=== PATIENT | female | born 1975 | race Caucasian/White ===

== ENCOUNTER 2018-08-26 11:31 | Emergency (ER) | payer OTHER ==
[2018-08-26] MEDS ORDERED: CIPROFLOXACIN 400mg IV 400 MG/200 ML BAG IV ONE (12:34)
[2018-08-26] MEDS ORDERED: METRONIDAZOLE 500mg IVPB 500 MG/100 ML BAG IV ONE (12:34)
[2018-08-26] MEDS ORDERED: NA CHLORIDE 0.9% 1,000 ML ONE (12:34)
[2018-08-26 12:46] LABS: Absolute Lymphocytes (CBC) 1.3 K/uL (0.7-4.9); Basophils % 0.9 % (0-1.3); Eosinophils % 0.9 % (0-4.4); Hematocrit 38.4 % (36.0-45.0); Lymphocytes % 32.5 % (15.3-44.8); MPV 8.5 fL (7.6-11.3); Monocytes % 5.9 % (3.3-12.3); RBC Red Blood Cell Count 4.36 M/uL (3.86-4.86)
[2018-08-26 13:01] LABS: ALT/SGPT 20 U/L (12-78); AST/SGOT 13 U/L (15-37); Alkaline Phosphatase 53 U/L (45-117); BUN Blood Urea Nitrogen 11 mg/dL (7-18); Bicarbonate 29 mmol/L (21-32); Bilirubin Direct < 0.1 mg/dL (0-0.2); Bilirubin Total 0.4 mg/dL (0.2-1.0); Glucose Level 86 mg/dL (74-106); Lipase 72 U/L (73-393); Potassium 3.7 mmol/L (3.5-5.1); Protein, Total 7.6 g/dL (6.4-8.2); Sodium Level 142 mmol/L (136-145)
[2018-08-26] MEDS ORDERED: ONDANSETRON 4 MG/2 ML VIAL ONE (13:08)
[2018-08-26] MEDS ORDERED: MORPHINE 4 MG/ML SYR ONE (13:08)
[2018-08-26 13:14] LABS: Urine Blood NEGATIVE (NEG); Urine Glucose NEGATIVE (NEG); Urine Protein NEGATIVE (NEG); Urine pH 5.5 (5.0-7.0)
[2018-08-26] MEDS ORDERED: FENTANYL CITR 100 MCG/2 ML ONE (13:42)
--- NOTE | 2018-08-26 13:57 | RAD REPORT ---
EXAM DESCRIPTION: CT - Abdomen Pelvis W Contrast - 08/26/2018 1:45 pm CLINICAL HISTORY: Abdominal pain. Hematochezia COMPARISON: None. TECHNIQUE: Computed axial tomography of the abdomen and pelvis was obtained. 100 cc Isovue-300 is ad ministered intravenously. Oral contrast was given. All CT scans are performed using dose optimization technique as appropriate and may include automated exposure control or mA/KV adjustment according to patient size. FINDINGS: The left lobe of the liver is prominent. Tiny hepatic cysts is present. Cholecystectomy Spleen, pancreas, adrenals and kidneys appear unremarkable. The appendix is normal caliber. There is no evidence of diverticulitis The wall of the distal transverse colon and descending colon is mildly to moderately thickened IMPRESSION: Mild to moderate colitis
--- NOTE | 2018-08-26 14:05 | ER ---
Nurse's Notes [facility] Name: Yara Smith Bone Age: 42 yrs Sex: Female : 1975 Arrival Date: 08/26/2018 Time: 11:36 Bed 20 Private MD: Latha Finley K Diagnosis: Abdominal tenderness;Left sided colitis-mild/moderate Presentation: 08/26 12:02 Presenting complaint: Child states: Lower abdominal pain and dark red bloody stools x 2 hb days. Transition of care: patient was not received from another setting of care. Onset of symptoms was August 25, 2018. Risk Assessment: Do you want to hurt yourself or someone else? Patient reports no desire to harm self or others. Initial Sepsis Screen: Does the patient meet any 2 criteria? No. Patient's initial sepsis screen is negative. Does the patient have a suspected source of infection? No. Patient's initial sepsis screen is negative. Care prior to arrival: None. 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 - Social history:: Smoking status: Patient/guardian denies using tobacco. - Ebola Screening: : No symptoms or risks identified at this time. - Family history:: not pertinent. Screenin:20 Abuse screen: Denies threats or abuse. Nutritional screening: No deficits noted. em Tuberculosis screening: No symptoms or risk factors identified. Fall Risk None identified. Assessment: 12:20 General: Appears in no apparent distress. comfortable, Behavior is calm, cooperative, em Denies fever. Pain: Complains of pain in left lower quadrant and right lower quadrant. Neuro: Level of Consciousness is awake, alert, obeys commands, Oriented to person, place, time, situation. Cardiovascular: Capillary refill < 3 seconds Patient's skin is warm and dry. Respiratory: Airway is patent Respiratory effort is even, unlabored, Respiratory pattern is regular, symmetrical. GI: Abdomen is flat, Bowel sounds present X 4 quads. Abd is soft X 4 quads Abdomen is tender to palpation in right lower quadrant and left lower quadrant Reports bloody stool, nausea. Derm: Skin is intact, is healthy with good turgor, Skin is pink, warm \T\ dry. Musculoskeletal: Capillary refill < 3 seconds, Range of motion: intact in all extremities. 13:50 Reassessment: Patient appears in no apparent distress at this time. Patient and/or em family updated on plan of care and expected duration. Pain level reassessed. Patient is alert, oriented x 3, equal unlabored respirations, skin warm/dry/pink. returned from CT. 14:00 Reassessment: pending completion of IV ABX for discharge. em 15:12 Reassessment: Patient appears in no apparent distress at this time. Patient and/or em family updated on plan of care and expected duration. Pain level reassessed. Patient is alert, oriented x 3, equal unlabored respirations, skin warm/dry/pink. Patient states feeling better. Patient states symptoms have improved. Vital Signs: 12:03 BP 111 / 68; Pulse 70; Resp 16; Temp 97.4; Pulse Ox 100% ; Weight 74.39 kg; Height 5 hb ft. 10 in. (177.80 cm); Pain 5/10; 13:00 BP 121 / 65; Pulse 55; Resp 18; Pulse Ox 99% on R/A; em 13:53 BP 117 / 75; Pulse 54; Resp 16; Pulse Ox 100% on R/A; em 15:13 BP 101 / 65; Pulse 52; Resp 16; Pulse Ox 99% on R/A; Pain 0/10; em 12:03 Body Mass Index 23.53 (74.39 kg, 177.80 cm) ED Course: 11:36 Patient arrived in ED. mr 11:36 Latha Finley MD is Private Physician. mr 12:03 Triage completed. hb 12:03 Arm band placed on. hb 12:05 Renato Read MD is Attending Physician. [facility] 12:08 Paul Nye LVN is Primary Nurse. em 12:20 Patient has correct armband on for positive identification. Placed in gown. Bed in low em position. Call light in reach. Pulse ox on. NIBP on. 12:31 Initial lab(s) drawn, by me, sent to lab. Urine collected: clean catch specimen, clear, jb1 will colored. Inserted saline lock: 22 gauge in right antecubital area, using aseptic technique. Blood collected. 13:45 CT Abd/Pelvis - PO and IV Contrast In Process Unspecified. EDMS 14:03 Latha Finley MD is Referral Physician. [place] 14:03 Fahad Bowling MD is Referral Physician. [place] 15:14 No provider procedures requiring assistance completed. IV discontinued, intact, em bleeding controlled, No redness/swelling at site. Pressure dressing applied. Administered Medications: 12:31 Drug: NS 0.9% 1000 ml Route: IV; Rate: 1 bolus; Site: right antecubital; em 15:17 Follow up: IV Status: Completed infusion; IV Intake: 1000ml em 12:31 Drug: Cipro 400 mg Volume: 200 ml; Route: IVPB; Infused Over: 60 mins; Site: right em antecubital; 14:25 Follow up: Response: No adverse reaction; IV Status: Completed infusion; IV Intake: em 200ml 13:00 Drug: Zofran 4 mg Route: IVP; Site: right antecubital; iw 14:25 Follow up: Response: No adverse reaction; Nausea is decreased em 13:17 CANCELLED (Duplicate Order): fentaNYL (PF) 50 mcg IVP once [place] 13:19 Not Given (Patient Refused): morphine 4 mg IVP once iw 13:34 Drug: fentaNYL (PF) 25 mcg Route: IVP; Site: right antecubital; iw 14:26 Follow up: Response: No adverse reaction; Pain is decreased em 14:25 Drug: Flagyl 500 mg Volume: 100 ml; Route: IVPB; Rate: 200 ml/hr; Infused Over: 30 em mins; Site: right antecubital; 15:16 Follow up: Response: No adverse reaction; IV Status: Completed infusion; IV Intake: em 100ml 15:12 Not Given (Physician Discretion): fentaNYL (PF) 25 mcg IVP once em Intake: 14:25 IV: 200ml; Total: 200ml. em 15:16 IV: 100ml; Total: 300ml. em 15:17 IV: 1000ml; Total: 1300ml. em Outcome: 14:05 Discharge ordered by . lin[place] 15:14 Discharged to home ambulatory, with family. em 15:14 Condition: good 15:14 Discharge instructions given to patient, Instructed on discharge instructions, follow up and referral plans. medication usage, Demonstrated understanding of instructions, follow-up care, medications, Prescriptions given X 6 15:41 Patient left the ED. em Signatures: Dispatcher [employer] EDJose A Kim [id number] Renato Read MD MD cha Rivera, Mary mr Paul Nye, HELPDESK SPECIALIST HELPDESK SPECIALIST em Elysia Hill, JENIFFER SWIFT iw Sammi Arguelles RN RN Corrections: (The following items were deleted from the chart) 13:19 13:07 morphine 4 mg IVP in right antecubital iw
--- NOTE | 2018-08-26 14:06 | EDPHYS ---
Physician Documentation [facility] Name: Yara Smith Bone Age: 42 yrs Sex: Female : 1975 Arrival Date: 08/26/2018 Time: 11:36 Bed 20 Private MD: Latha Finley K ED Physician Renato Read HPI: 08/26 13:18 This 42 yrs old Female presents to ER via Ambulatory with complaints of linwood Abdominal Pain, Bloody Stools. 13:18 The patient presents with abdominal pain in the lower abdomen. Onset: The linwood symptoms/episode began/occurred 2 day(s) ago. The patient presents to the emergency department with rectal bleeding. 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 - Social history:: Smoking status: Patient/guardian denies using tobacco. - Ebola Screening: : No symptoms or risks identified at this time. - Family history:: not pertinent. ROS: 13:18 Constitutional: Negative for fever, chills, and weight loss, Eyes: Negative for injury, linwood pain, redness, and discharge, ENT: Negative for injury, pain, and discharge, Neck: Negative for injury, pain, and swelling, Cardiovascular: Negative for chest pain, palpitations, and edema, Respiratory: Negative for shortness of breath, cough, wheezing, and pleuritic chest pain, Back: Negative for injury and pain, : Negative for injury, bleeding, discharge, and swelling, MS/Extremity: Negative for injury and deformity, Skin: Negative for injury, rash, and discoloration, Neuro: Negative for headache, weakness, numbness, tingling, and seizure, Psych: Negative for depression, anxiety, suicide ideation, homicidal ideation, and hallucinations, Allergy/Immunology: Negative for hives, rash, and allergies, Endocrine: Negative for neck swelling, polydipsia, polyuria, polyphagia, and marked weight changes, Hematologic/Lymphatic: Negative for swollen nodes, abnormal bleeding, and unusual bruising. 13:18 Abdomen/GI: Positive for abdominal pain, of the right lower quadrant and left lower quadrant. Exam: 13:18 Constitutional: This is a well developed, well nourished patient who is awake, alert, linwood and in no acute distress. Head/Face: Normocephalic, atraumatic. Eyes: Pupils equal round and reactive to light, extra-ocular motions intact. Lids and lashes normal. Conjunctiva and sclera are non-icteric and not injected. Cornea within normal limits. Periorbital areas with no swelling, redness, or edema. ENT: Nares patent. No nasal discharge, no septal abnormalities noted. Tympanic membranes are normal and external auditory canals are clear. Oropharynx with no redness, swelling, or masses, exudates, or evidence of obstruction, uvula midline. Mucous membranes moist. Neck: Trachea midline, no thyromegaly or masses palpated, and no cervical lymphadenopathy. Supple, full range of motion without nuchal rigidity, or vertebral point tenderness. No Meningismus. Chest/axilla: Normal chest wall appearance and motion. Nontender with no deformity. No lesions are appreciated. Cardiovascular: Regular rate and rhythm with a normal S1 and S2. No gallops, murmurs, or rubs. Normal PMI, no JVD. No pulse deficits. Respiratory: Lungs have equal breath sounds bilaterally, clear to auscultation and percussion. No rales, rhonchi or wheezes noted. No increased work of breathing, no retractions or nasal flaring. Back: No spinal tenderness. No costovertebral tenderness. Full range of motion. Female : Normal external genitalia. Skin: Warm, dry with normal turgor. Normal color with no rashes, no lesions, and no evidence of cellulitis. MS/ Extremity: Pulses equal, no cyanosis. Neurovascular intact. Full, normal range of motion. Neuro: Awake and alert, GCS 15, oriented to person, place, time, and situation. Cranial nerves II-XII grossly intact. Motor strength 5/5 in all extremities. Sensory grossly intact. Cerebellar exam normal. Normal gait. Psych: Awake, alert, with orientation to person, place and time. Behavior, mood, and affect are within normal limits. 13:18 Abdomen/GI: Inspection: abdomen appears normal, Bowel sounds: active, Palpation: mild abdominal tenderness, in the right lower quadrant and left lower quadrant, Liver: no appreciated palpable abnormalities, Hernia: not appreciated. Vital Signs: 12:03 BP 111 / 68; Pulse 70; Resp 16; Temp 97.4; Pulse Ox 100% ; Weight 74.39 kg; Height 5 hb ft. 10 in. (177.80 cm); Pain 5/10; 13:00 BP 121 / 65; Pulse 55; Resp 18; Pulse Ox 99% on R/A; em 13:53 BP 117 / 75; Pulse 54; Resp 16; Pulse Ox 100% on R/A; em 15:13 BP 101 / 65; Pulse 52; Resp 16; Pulse Ox 99% on R/A; Pain 0/10; em 12:03 Body Mass Index 23.53 (74.39 kg, 177.80 cm) hb MDM: 12:[address] [facility] 13:19 Data reviewed: vital signs, nurses notes, lab test result(s), radiologic studies, CT linwood scan. 08/26 12:07 Order name: Basic Metabolic Panel; Complete Time: 14:02 [facility] 08/26 12:07 Order name: CBC with Diff [facility] 08/26 12:07 Order name: Creatinine for Radiology; Complete Time: 14:02 [facility] 08/26 12:07 Order name: Hepatic Function; Complete Time: 14:02 [facility] 08/26 12:07 Order name: Lipase; Complete Time: 14:02 [facility] 08/26 12:07 Order name: Urine Culture [facility] 08/26 12:07 Order name: CT Abd/Pelvis - PO and IV Contrast; Complete Time: 14:02 [facility] 08/26 12:21 Order name: Urine Dipstick--Ancillary (enter results); Complete Time: 14:02 08/26 12:21 Order name: Urine --Ancillary (enter results); Complete Time: 14:02 08/26 14:08 Order name: Stool Culture [facility] 08/26 12:07 Order name: IV Saline Lock; Complete Time: 12:31 [facility] 08/26 12:07 Order name: Labs collected and sent; Complete Time: 12:31 [facility] 08/26 12:07 Order name: Urine Dipstick-Ancillary (obtain specimen); Complete Time: 12:31 [facility] 08/26 12:07 Order name: Urine Test (obtain specimen); Complete Time: 12:31 [place] Administered Medications: 12:31 Drug: NS 0.9% 1000 ml Route: IV; Rate: 1 bolus; Site: right antecubital; em 15:17 Follow up: IV Status: Completed infusion; IV Intake: 1000ml em 12:31 Drug: Cipro 400 mg Volume: 200 ml; Route: IVPB; Infused Over: 60 mins; Site: right em antecubital; 14:25 Follow up: Response: No adverse reaction; IV Status: Completed infusion; IV Intake: em 200ml 13:00 Drug: Zofran 4 mg Route: IVP; Site: right antecubital; iw 14:25 Follow up: Response: No adverse reaction; Nausea is decreased em 13:17 CANCELLED (Duplicate Order): fentaNYL (PF) 50 mcg IVP once [place] 13:19 Not Given (Patient Refused): morphine 4 mg IVP once iw 13:34 Drug: fentaNYL (PF) 25 mcg Route: IVP; Site: right antecubital; iw 14:26 Follow up: Response: No adverse reaction; Pain is decreased em 14:25 Drug: Flagyl 500 mg Volume: 100 ml; Route: IVPB; Rate: 200 ml/hr; Infused Over: 30 em mins; Site: right antecubital; 15:16 Follow up: Response: No adverse reaction; IV Status: Completed infusion; IV Intake: em 100ml 15:12 Not Given (Physician Discretion): fentaNYL (PF) 25 mcg IVP once em Disposition: 08/26/18 14:05 Discharged to Home. Impression: Abdominal tenderness, Left sided colitis - mild/moderate. - Condition is Stable. - Discharge Instructions: Abdominal Pain, Adult, Abdominal Pain, Adult, [id number]. - Prescriptions for Bentyl 20 mg Oral Tablet - take 1 tablet by ORAL route every 6 hours As needed; 20 tablet. Flagyl 500 mg Oral Tablet - take 1 tablet by ORAL route every 12 hours for 10 days; 20 tablet. Pepcid 20 mg Oral Tablet - take 1 tablet by ORAL route every 12 hours for 10 days; 20 tablet. Tylenol- Codeine #3 300-30 mg Oral Tablet - take 2 tablets by ORAL route every 6 hours As needed; 20 tablet. Zofran 4 mg Oral Tablet - take 1 tablet by ORAL route every 12 hours As needed; 20 tablet. Cipro 500 mg Oral Tablet - take 1 tablet by ORAL route every 12 hours for 10 days; 20 tablet. - Medication Reconciliation Form, Thank You Letter, Antibiotic Education, Prescription Opioid Use form. - Follow up: Latha Finley MD; When: 2 - 3 days; Reason: Recheck today's complaints, Continuance of care, Re-evaluation by your physician. Follow up: Fahad Bowling MD; When: 2 - 3 days; Reason: Recheck today's complaints, Continuance of care, Re-evaluation by your physician. - Problem is new. - Symptoms have improved. Signatures: Dispatcher [employer] EDMS Renato Read MD MD cha Munoz, Edgar, STATIONARY BOILER FIREMAN STATIONARY BOILER FIREMAN em Elysia Hill, JENIFFER SWIFT Sammi Arguelles RN RN Corrections: (The following items were deleted from the chart) 13:17 13:16 fentaNYL (PF) 50 mcg IVP once ordered. [facility] 15:41 14:05 08/26/2018 14:05 Discharged to Home. Impression: Abdominal tenderness; Left sided em colitis - mild/moderate. Condition is Stable. Forms are Medication Reconciliation Form, Thank You Letter, Antibiotic Education, Prescription Opioid Use. Follow up: Latha Finley; When: 2 - 3 days; Reason: Recheck today's complaints, Continuance of care, Re-evaluation by your physician. Follow up: Fahad Bowling; When: 2 - 3 days; Reason: Recheck today's complaints, Continuance of care, Re-evaluation by your physician. Problem is new. Symptoms have improved. lin[place]
[2018-08-26 16:00] VITALS: TEMP 97.4
[2018-08-26 16:04] VITALS: BP 101/65; O2SAT 99
== END 2018-08-26 15:41 | disposition home or self-care (01) ==
LOC: ER 11:31
DX: K51.50 Left sided colitis without complications (principal); Z88.6 Allergy status to analgesic agent; Z88.8 Allergy status to other drugs, medicaments and biological substances
CPT/HCPCS: 36415; 74177; 80048; 80076; 81003; 81025; 83690; 85025; 87086; 87088; 96365; 96366; 96367; 96375; 99284; J0744; J2405; J3010; J7030; Q9967